=== PATIENT | female | born 1940 | race Caucasian/White ===

== ENCOUNTER 2020-09-24 10:03 | Emergency (ER) | payer MEDICARE ==
[~2020-09-24 10:03] MED LIST: 3IN1 COMMODE; ALENDRONATE SOD70 MG PO; ARICEPT 5MG TABL5 MG PO; KLOR-CON 1010 MEQ PO; MACRODANTIN50 MG PO; METOPROLOL ER-1 EAC1 PO; ZOCOR20 MG PO
[2020-09-24 11:07] LABS: ALBUMIN 3.5 g/dL (3.4-5.0); BILIRUBIN - TOTAL 1.1 mg/dL (0.2-1.0); BUN/CREAT RATIO (CALC) 13.9 RATIO; CREATININE 1.01 mg/dL (0.51-0.95); GLOBULIN (CALCULATION) 3.4 g/dL; POTASSIUM 3.8 mmol/L (3.5-5.1); TOTAL PROTEIN 6.9 g/dL (6.4-8.2)
[2020-09-24 11:09] LABS: BASOPHIL 0.8 % (0-2); EOSINOPHIL 2.3 % (0-7); HCT 38.4 % (37.0-47.0); HGB 12.7 g/dl (12.5-16.0); LYMPHOCYTE 19.1 % (15-48); MCH 32.1 pg (25.0-31.0); MCHC 33.1 g/dL (32.0-36.0); MONOCYTE 6.4 % (0-12); NEUTROPHIL 71.2 % (41-80); NRBC 0; PLT 201 K/uL (150-400); RBC 3.96 M/uL (4.20-5.40); RDW 13.2 % (11.5-14.0); WBC 4.7 K/uL (4.0-10.5)
== END 2020-09-24 13:20 | disposition home or self-care (01) ==
LOC: FER 10:03
PROVIDERS: Emergency Medicine
DX: I95.1 Orthostatic hypotension (principal); I10 Essential (primary) hypertension; F03.90 Unspecified dementia, unspecified severity, without behavioral disturbance, psychotic disturbance, mood disturbance, and anxiety
CPT/HCPCS: 36415; 71045; 80053; 84484; 85025; 93005; J7040

== ENCOUNTER 2021-02-26 18:42 | Emergency (ER) | payer MEDICARE ==
[2021-02-26 20:28] LABS: BASOPHIL 0.8 % (0-2); EOSINOPHIL 2.2 % (0-7); HCT 40.6 % (37.0-47.0); HGB 13.5 g/dl (12.5-16.0); LYMPHOCYTE 19.7 % (15-48); MCH 32.1 pg (25.0-31.0); MCHC 33.3 g/dL (32.0-36.0); MCV 96.7 fL (78.0-100.0); MONOCYTE 8.3 % (0-12); MPV 10.2 fL (6.0-9.5); NEUTROPHIL 68.7 % (41-80); NRBC 0; PLT 204 K/uL (150-400); RDW 13.3 % (11.5-14.0); WBC 5.9 K/uL (4.0-10.5)
[2021-02-26 20:37] LABS: ALBUMIN 3.8 g/dL (3.4-5.0); BILIRUBIN - TOTAL 0.9 mg/dL (0.2-1.0); BUN/CREAT RATIO (CALC) 18.9 RATIO; CREATININE 0.9 mg/dL (0.51-0.95); GLOBULIN (CALCULATION) 3.5 g/dL; POTASSIUM 3.7 mmol/L (3.5-5.1); TOTAL PROTEIN 7.3 g/dL (6.4-8.2)
== END 2021-02-26 21:59 | disposition home or self-care (01) ==
LOC: FER 18:42
PROVIDERS: Internal Medicine
DX: R07.89 Other chest pain (principal); F03.90 Unspecified dementia, unspecified severity, without behavioral disturbance, psychotic disturbance, mood disturbance, and anxiety; Z88.0 Allergy status to penicillin
CPT/HCPCS: 36415; 71045; 80053; 83880; 84484; 85025; 85379; 93005; 94760